=== PATIENT | female | born 1960 | race African-American/Black ===

== ENCOUNTER 2019-08-09 21:25 | Emergency (ER) | payer OTHER ==
[2019-08-09 22:04] LABS: INR 0.97 (0.82-1.09)
[2019-08-09 22:14] LABS: ALT 15 U/L (7-52); Albumin 4.3 g/dL (3.2-5.2); Albumin/Globulin Ratio 1.4 (1-3); Alkaline Phosphatase 60 U/L (34-104); BUN/Creatinine Ratio 15.5 (8-20); Blood Urea Nitrogen 11 mg/dL (6-24); CO2 Carbon Dioxide 29 mmol/L (22-32); Calcium 10.2 mg/dL (8.6-10.3); Chloride 107 mmol/L (101-111); EGFR African American 101.3 (>60); EGFR Non-African American 83.7 (>60); Globulin 3.1 g/dL (2-4); Glucose 109 mg/dL (70-100); Sodium 142 mmol/L (135-145); Total Protein 7.4 g/dL (6.4-8.9)
--- NOTE | 2019-08-09 22:26 | ED ---
Back Pain - HPI Summary HPI Summary: 59 year old female presents to the ED with a chief complaint of intermittent upper back pain that radiates to her middle chest starting 2 days ago. She reports losing feeling on her left side a week ago, but symptoms went away quickly with aspirin. 2 days ago she felt back pain that radiated to her middle chest, accompanied with fluctuations of heart rate and palpitations. The back pain is described as a dull constant pain that starts underneath her right shoulder and is exacerbated with every breath and by movement. She has intermittent chest pain both at rest and exertion, described as pressure. Patient has never had these symptoms before. Patient also reports shortness of breath and diarrhea. Aspirin did not alleviate the pain. Patient reports feeling warm but denies subjective fever, as well as cough, vomiting, and nausea. Patient has a history of depression and anxiety. She has a PMHx has a history of a gastric parasite infection several weeks ago for which she was treated for; she took her medications for the full course. Patient does not smoke tobacco or do recreational drugs. She occasionally drinks alcohol. FHx of Alzheimer's, cancer, drug abuse, AIDS, and HTN. Patient had a negative stress test 2 years ago. - History of Current Complaint Chief Complaint: EDChestPainROMI Stated Complaint: CHEST PAIN PER PT Time Seen by Provider: 08/09/19 22:17 Hx Obtained From: Patient Onset/Duration: Lasting Days, Still Present Onset/Duration: Started Days Ago, Still Present Timing: Constant - dull back pain, Intermittent - chest pressure and SOB Back Pain Location: Is Discrete @ - below her right scapula, Radiates To - middle chest Severity Initially: Moderate Severity Currently: Moderate Pain Intensity: 4 Pain Scale Used: 0-10 Numeric Character: Dull - Back pain is dull, sharp on exacerbation. Chest pain is described as pressure. Aggravating Symptom(s): Movement, Other - Breathing Associated Signs And Symptoms: Positive: Numbness - Week ago, resolved - Allergies/Home Medications Allergies/Adverse Reactions: Allergies Allergy/AdvReac Type Severity Reaction Status Date / Time ciprofloxacin Allergy Unknown Verified 08/09/19 21:40 Reaction Details levofloxacin [From Levaquin] Allergy Unknown Verified 08/09/19 21:41 Reaction Details Home Medications: Home Medications Vitamin A/Vit C/Zinc/Propolis [Zinc 15 mg Lozenges] 1 moe PO DAILY 08/09/19 [ History Confirmed 08/09/19] PMH/Surg Hx/FS Hx/Imm Hx Endocrine/Hematology History: Denies: Hx Diabetes, Hx Thyroid Disease Cardiovascular History: Reports: Hx Angina - MID BACK INOT CHEST, Hx Hypertension Respiratory History: Denies: Hx Asthma, Hx Chronic Obstructive Pulmonary Disease (COPD) GI History: Denies: Hx Ulcer Musculoskeletal History: Reports: Hx Back Problems Neurological History: Denies: Hx Headaches, Hx Migraine Psychiatric History: Reports: Hx Anxiety, Hx Bipolar Disorder Infectious Disease History: No Infectious Disease History: Denies: Hx Clostridium Difficile, Hx Hepatitis, Hx Human Immunodeficiency Virus (HIV), Hx of Known/Suspected MRSA, Hx Shingles, Hx Tuberculosis, History Other Infectious Disease, Traveled Outside the [place] in Last 30 Days - Family History Known Family History: Positive: Hypertension - Social History Alcohol Use: Occasionally Alcohol Amount: WINE Substance Use Type: Reports: None Smoking Status (MU): Former Smoker Review of Systems - ROS Summary Review of Systems Summary: Home Medications Medication Instructions Recorded Confirmed Type Ascorbic Acid TAB* [Vitamin C 500 mg PO DAILY 09/30/15 09/30/15 History TAB*] Coenzyme Q10 (Ubidecarenone) [Co 100 mg PO DAILY 09/30/15 09/30/15 History Q10] Gabapentin CAP(*) [Neurontin 100 mg PO BID 09/30/15 09/30/15 History CAP(*)] Multivitamins/Minerals TAB* 1 tab PO DAILY 09/30/15 09/30/15 History [Theragran/minerals TAB*] Vitamin A/Vit C/Zinc/Propolis 1 moe PO DAILY 08/09/19 08/09/19 History [Zinc 15 mg Lozenges] Negative: Fever Positive: Palpitations, Chest Pain Positive: Shortness Of Breath. Negative: Cough Negative: Vomiting, Diarrhea, Nausea Positive: Myalgia - Back Pain Positive: Numbness All Other Systems Reviewed And Are Negative: Yes Physical Exam - Summary Physical Exam Summary: General: Thin female. No acute distress. HEENT: Normocephalic, Atraumatic. Eyes: Conjuctiva normal, PERRL. Ears: TMs within normal limits. Nares: (-) discharge, (-) erythema. Oropharynx: Clear, mucous membranes moist, (-) exudates. Neck: Soft, FROM, (-) lymphadenopathy, (-) thyromegaly, (-) JVD. Cardiovascular: Normal sinus rhythm, (-) murmur. Lungs: Clear to auscultation bilaterally (-) wheezes, (-) rales, (-) rhonchi. Abdomen: Soft, non-tender, non-distended, (-) organomegaly, normal bowel sounds. Back: (-) CVA tenderness. Unable to reproduce indicated right inferior shoulder blade pain. Extremities: No edema. Skin: Warm, dry, (-) rash. Neuro: Alert and oriented x3, no focal deficits. Psychiatric: Mood normal, affect flat. Triage Information Reviewed: Yes Vital Signs On Initial Exam: Initial Vitals Temp Pulse Resp BP Pulse Ox 98.6 F 97 16 159/91 100 08/09/19 21:27 08/09/19 21:27 08/09/19 21:27 08/09/19 21:27 08/09/19 21:27 Vital Signs Reviewed: Yes Procedures - Sedation Patient Received Moderate/Deep Sedation with Procedure: No Diagnostics - Vital Signs Vital Signs Temp Pulse Resp BP Pulse Ox 08/09/19 21:27 98.6 F 97 16 159/91 100 - Laboratory Lab Results: Lab Results 08/09/19 08/09/19 Range/Units 21:47 21:47 INR (Anticoag Therapy) 0.97 (0.82-1.09) Sodium 142 (135-145) mmol/L Potassium Pending Chloride 107 (101-111) mmol/L Carbon Dioxide 29 (22-32) mmol/L Anion Gap Pending BUN 11 (6-24) mg/dL Creatinine 0.71 (0.51-0.95) mg/dL Est GFR ( Amer) 101.3 (>60) Est GFR (Non-Af Amer) 83.7 (>60) BUN/Creatinine Ratio 15.5 (8-20) Glucose 109 H (70-100) mg/dL Calcium 10.2 (8.6-10.3) mg/dL Total Bilirubin 0.40 (0.2-1.0) mg/dL AST Pending ALT 15 (7-52) U/L Alkaline Phosphatase 60 (34-104) U/L Troponin I 0.00 (<0.03) ng/mL Total Protein 7.4 (6.4-8.9) g/dL Albumin 4.3 (3.2-5.2) g/dL Globulin 3.1 (2-4) g/dL Albumin/Globulin Ratio 1.4 (1-3) Result Diagrams: 08/09/19 22:57 08/10/19 00:26 Lab Statement: Any lab studies that have been ordered have been reviewed, and results considered in the medical decision making process. - Radiology CXR Radiology Interpretation Completed By: ED Physician Summary of Radiographic Findings: No acute changes. No obvious infiltrate. No pleural effusion. Dr. Dow has reviewed and interpreted this XR. - CT Chest/Thorax CT CT Interpretation Completed By: Radiologist Summary of CT Findings: Impressions: 1. 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 between the manubrium and right innominate artery. Venous collateralization is. noted. 2. Otherwise negative CTA chest. No pulmonary embolism is identified. An ED physician has reviewed this report. Re-Evaluation - Re-Evaluation First Eval Re-Evaluation Time: 00:36 Change: Unchanged Comment: Patient says she's extremely hungry. I allowed her to eat. Second Eval Re-Evaluation Time: 03:28 Change: Improved Comment: I have discussed results with the patient and her chest pain and back pain are resolved. Discussed symptoms that warrant immediate return to ED. Back Pain Course/Dx - Course Course Of Treatment: 59 year old female presents with right back pain and chest pain. mild sob. workup demonstrates normal troponin, elev ddimer. cta chest negative. discussed with patient at length. she admits she has been under a lot of stress recently. difficulty sleeping. follow up with PCP. - Diagnoses Provider Diagnoses: Back pain, Chest pain Discharge ED - Sign-Out/Discharge Documenting (check all that apply): Patient Departure - discharge - Discharge Plan Condition: Stable Disposition: HOME Patient Education Materials: Chest Pain (ED), Back Pain (ED) Referrals: Gilda Encarnacion MD [Primary Care Provider] - Additional Instructions: Follow up with your primary care provider within 3 days. Return to the Emergency Department for new or worsened symptoms. - Billing Disposition and Condition Condition: STABLE Disposition: Home - Attestation Statements Document Initiated by Scribe: Yes Documenting Scribe: Jorge Luis Horta Provider For Whom Scribe is Documenting (Include Credential): Kassidy Dow MD Scribe Attestation: I, Jorge Luis Horta, scribed for Kassidy Dow MD on 08/10/19 at 0435. Scribe Documentation Reviewed: Yes Provider Attestation: The documentation as recorded by the scribe, Jorge Luis Horta accurately reflects the service I personally performed and the decisions made by me, Kassidy Dow MD Status of Scribe Document: Viewed
[2019-08-09 23:06] LABS: Anion Gap 6 mmol/L (2-11)
[2019-08-09 23:14] LABS: ABS Lymphocytes 1.9 10^3/ul (1.0-4.8); ABS Monocytes 0.5 10^3/ul (0-0.8); Eosinophil % 0.5 %; Hematocrit 39 % (35-47); Hemoglobin 12.9 g/dL (12.0-16.0); Lymphocyte % 22.4 %; Mean Corpuscular HGB Conc 33 g/dL (31-36); Mean Corpuscular Hemoglobin 31 pg (27-31); Mean Corpuscular Volume 93 fL (80-97); Mean Platelet Volume 8.1 fL (7.4-10.4); Nucleated Red Blood Cells % 0.1; Platelet Count 275 10^3/uL (150-450); Red Cell Distribution Width 13 % (10-15); White Blood Count 8.6 10^3/uL (3.5-10.8)
[2019-08-10 00:09] LABS: HIV 4th Generation Nonreactive (Nonreactive)
[2019-08-10] MEDS ORDERED: Iohexol 350* (CONTRAST) 500 ML MDV IV ONE (00:34)
[2019-08-10 00:48] LABS: Potassium Redraw 3.8 mmol/L (3.5-5.0)
[2019-08-10 03:43] VITALS: BP 157/103
== END 2019-08-10 03:42 | disposition home or self-care (01) ==
LOC: ED 21:25
DX: M54.9 Dorsalgia, unspecified (principal); R07.9 Chest pain, unspecified; I10 Essential (primary) hypertension; F41.9 Anxiety disorder, unspecified; F31.9 Bipolar disorder, unspecified; Z79.899 Other long term (current) drug therapy; Z88.1 Allergy status to other antibiotic agents
CPT/HCPCS: 36415; 71045; 71275; 80053; 84484; 85025; 85379; 85610; 87389; 93005; 99283; Q9967